=== PATIENT | male | born 1980 | race Caucasian/White ===

== ENCOUNTER 2019-04-21 15:22 | Emergency (ER) | payer OTHER ==
[~2019-04-21] VITALS: Ht 180.3 cm; Wt 83.5 kg
--- NOTE | 2019-04-21 15:35 | NUR ---
Patient came in to ED for a psych evaluation secondary to methamphetamine use. Patient not complaining of pain @ this time. Patient in no signs of acute distress.
--- NOTE | 2019-04-21 15:45 | NUR ---
Patient to ER bed 5 to gown for evaluation. Side rails up. Report given to Amaya MORRIS.
--- NOTE | 2019-04-21 15:50 | NUR ---
ER Dr. Monahan at bedside examining patient.
--- NOTE | 2019-04-21 16:37 | NUR ---
Patient given written and verbal discharge instructions and verbalizes understanding. ER MD discussed with patient the results and treatment provided. Patient in stable condition. ID arm band removed. Rx of Ativan given. Patient educated on pain management and to follow up with PMD. Pain Scale 0/10. Opportunity for questions provided and answered. Medication side effect fact sheet provided. Patient was proided with referral to substance abuse facilities.
== END 2019-04-21 16:37 | disposition home or self-care (01) ==
LOC: SED 15:22
DX: F15.10 Other stimulant abuse, uncomplicated (principal); F32.9 Major depressive disorder, single episode, unspecified
CPT/HCPCS: 99283